=== PATIENT | female | born 1985 ===

== ENCOUNTER 2018-12-15 22:16 | Emergency (ER) | payer BC, SELFPAY ==
[2018-12-15 23:39] LABS: Urine Blood 3+ (NEG); Urine Glucose NEGATIVE (NEG); Urine Protein NEGATIVE (NEG); Urine Specific Gravity <1.005 (1.005-1.030)
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
[2018-12-16 04:08] VITALS: TEMP 98.9
[2018-12-16 04:15] VITALS: BP 153/82; O2SAT 100
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
== END 2018-12-16 03:48 | disposition home or self-care (01) ==
LOC: ER 22:16
DX: S20.219A Contusion of unspecified front wall of thorax, initial encounter (principal); S30.1XXA Contusion of abdominal wall, initial encounter; V49.49XA Driver injured in collision with other motor vehicles in traffic accident, initial encounter; I10 Essential (primary) hypertension
CPT/HCPCS: 36415; 70450; 71260; 72125; 74177; 81003; 84703; 96374; 96375; 99285; Q9967